=== PATIENT | male | born 1970 | race Caucasian/White ===

== ENCOUNTER → 2017-10-05 11:55 | Outpatient (CLI) | payer BC, SELFPAY ==
--- NOTE | 2017-10-05 12:04 | DI.REPORT_ITS ---
SYMPTOM/DIAGNOSIS: RT HAND PAIN, M79.641 RIGHT HAND: Mildly marginated bony densities seen adjacent to the radial styloid which could be related to an old injury. The bones appear normally mineralized. There are minimal degenerative changes of the interphalangeal joints of the fingers. IMPRESSION: Minimal degenerative changes.
== END ==
PROVIDERS: Visit Provider Nurse Practitioner
DX: M79.641 Pain in right hand (principal); M19.041 Primary osteoarthritis, right hand
CPT/HCPCS: 73130

== ENCOUNTER 2019-04-03 08:35 | Outpatient (REF) | payer BC, SELFPAY ==
[2019-04-03 14:11] LABS: ALT 43 U/L (16-63); AST 19 U/L (15-37); Anion Gap 8.6 mmol/L (3-11); BUN 15 mg/dL (7-18); CO2 28.4 mmol/L (21.0-32.0); CREATININE 1.33 mg/dL (0.70-1.30); Calcium 9.7 mg/dL (8.5-10.1); Calculated LDL 78 mg/dL (<100); Chloride 106 mmol/L (98-107); Cholesterol 148 mg/dL (<200); Estimated GFR 57.63 (mL/min/1.73m2); Glucose 96 mg/dL (74-106); HDL Cholesterol 61 mg/dL (40-60); Potassium 5.5 mmol/L (3.5-5.1); Sodium 143 mmol/L (136-145); Triglyceride 47 mg/dL (<150)
== END 2019-04-03 08:55 ==
LOC: NCHCN 08:35
PROVIDERS: PCP Internal Medicine; Visit Provider Nurse Practitioner Family
DX: Z00.00 Encounter for general adult medical examination without abnormal findings (principal); Z13.220 Encounter for screening for lipoid disorders; Z13.228 Encounter for screening for other metabolic disorders
CPT/HCPCS: 80048; 80061; 84450; 84460

== ENCOUNTER 2019-04-23 10:00 | Outpatient (CLI) | payer BC, SELFPAY ==
--- NOTE | 2019-04-23 09:30 | DI.RAD_ITS ---
EXAM: XR KNEE RT 3V AP,LAT,CHRISTOFER CLINICAL HISTORY: Pain. TECHNIQUE: 2D digital imaging was performed. COMPARISON: No exams were available for comparison FINDINGS: BONES: No acute fracture is present. No bony destructive lesion is seen. JOINTS: The knee is normally aligned. No joint effusion is seen. SOFT TISSUE: Normal. IMPRESSION: Unremarkable radiographs of the right knee.
== END 2019-04-23 10:20 ==
PROVIDERS: PCP Internal Medicine; Visit Provider Student in an Organized Health Care Education/Training Program
DX: M25.561 Pain in right knee (principal)
CPT/HCPCS: 73562

== ENCOUNTER 2019-05-09 01:46 | Outpatient (CLI) | payer BC, SELFPAY ==
--- NOTE | 2019-05-09 08:20 | DI.MRI_ITS ---
EXAM: MR LOWER JOINT RT WO CLINICAL HISTORY: right knee pain; possible patella chondromalacia, internal derangement,STRAIN RT G ASTROCNEMIUS MUSCLE, M23.91,M22.41,M25.561,S86.111A TECHNIQUE: Multiplanar multisequence MRI was performed. COMPARISON: XR KNEE RT 3V AP,LAT,CHRISTOFER from 04/23/2019 FINDINGS: The anterior and posterior cruciate ligaments are intact as are the medial and lateral collateral lig aments. The extensor mechanism and medial lateral retinaculum are unremarkable. Articular cartilage is well maintained. The marrow signal shows no evidence of an occult fracture or avascular necrosis. There is hyperintense signal seen within the body of the medial meniscus suspicious for a tear. The l ateral meniscus is intact. There is a small amount of fluid in the joint space. No popliteal cyst is seen. The soft tissues are unremarkable. IMPRESSION: 1. Findings suspicious for a tear of the body of the medial meniscus. 2. Unremarkable appearance of the articular cartilage. 3. No evidence of a ligament tear. DATA REPOSITORY:
== END 2019-05-09 02:06 ==
PROVIDERS: PCP Internal Medicine; Visit Provider Physician Assistant
DX: M25.561 Pain in right knee (principal); M22.41 Chondromalacia patellae, right knee; M23.331 Other meniscus derangements, other medial meniscus, right knee; M25.461 Effusion, right knee
CPT/HCPCS: 73721

== ENCOUNTER 2019-07-08 10:18 | Outpatient (REF) | payer BC, SELFPAY ==
[2019-07-08 21:05] LABS: BUN 17 mg/dL (7-18); Calcium 9.9 mg/dL (8.5-10.1); Chloride 104 mmol/L (98-107); Estimated GFR 59.17 (mL/min/1.73m2); Glucose 84 mg/dL (74-106); Sodium 141 mmol/L (136-145)
== END 2019-07-08 10:38 ==
LOC: NCHCN 10:18
PROVIDERS: PCP Internal Medicine; Visit Provider Nurse Practitioner Family
DX: Z00.00 Encounter for general adult medical examination without abnormal findings (principal); Z13.220 Encounter for screening for lipoid disorders
CPT/HCPCS: 80048

== ENCOUNTER 2019-08-27 15:58 | Outpatient (REF) | payer BC, SELFPAY ==
[2019-08-27 20:45] LABS: ALT 21 U/L (16-63); AST 17 U/L (15-37); Albumin 4.4 g/dL (3.4-5.0); Alkaline Phosphatase 46 U/L (46-116); Anion Gap 10.9 mmol/L (3-11); BUN 19 mg/dL (7-18); Bilirubin, Total 1.1 mg/dL (0.2-1.0); CO2 28.1 mmol/L (21.0-32.0); CREATININE 1.34 mg/dL (0.70-1.30); Calcium 9.8 mg/dL (8.5-10.1); Chloride 105 mmol/L (98-107); Estimated GFR 57.14 (mL/min/1.73m2); Glucose 85 mg/dL (74-106); Potassium 4.6 mmol/L (3.5-5.1); Sodium 144 mmol/L (136-145)
[2019-08-29 10:07] LABS: Prealbumin 21 mg/dL (20-40)
== END 2019-08-27 16:18 ==
LOC: NCHCN 15:58
PROVIDERS: PCP Internal Medicine; Visit Provider Nurse Practitioner Family
DX: Z01.818 Encounter for other preprocedural examination (principal); M25.561 Pain in right knee
CPT/HCPCS: 80053; 84134

== ENCOUNTER 2019-09-02 09:13 | Outpatient (CLI) | payer BC, SELFPAY ==
[2019-09-03 00:50] LABS: COVID-19 RT-PCR UVMMC Result Negative (Negative)
== END 2019-09-02 09:33 ==
PROVIDERS: PCP Internal Medicine; Visit Provider Student in an Organized Health Care Education/Training Program
DX: Z01.818 Encounter for other preprocedural examination (principal); Z11.59 Encounter for screening for other viral diseases
CPT/HCPCS: U0003

== ENCOUNTER 2019-09-05 07:41 | Day surgery (SDC) | payer BC, SELFPAY ==
[2019-09-05] VITALS (7 sets, daily range): BP systolic 96–131; BP diastolic 48–71; PULSE 32–44; RESP 11–16; TEMP 36.4–36.6; O2SAT 95–100
[2019-09-05] MEDS: Lactated Ringers 1,000 ML 100 ML IV (08:13)
--- NOTE | 2019-09-05 09:26 | PDOC.DSDIS_ITS ---
Discharge Plan Disposition Patient Disposition: HOME Condition: Stable Discharge Details Reason For Visit: Right knee arthroscopic surgery Attending Provider: Lowell Mccormick Primary Care Provider: Angel Hopkins Home Meds and New Rx's Prescriptions: New tramadol 50 mg Tablet 50 mg PO Q8H PRN PRN (Reason: severe pain) Qty: 9 RF: 0 aspirin 81 mg tablet,delayed release (DR/EC) 81 mg PO BID 30 Days Qty: 60 RF: 0 Continued albuterol sulfate 8.5 GM HFA aerosol inhaler 2 inh inhalation PRN PRNRF: 0 Discontinued ibuprofen 200 MG capsule 800 mg PO PRN PRN (Reason: Pain) RF: 0 ketorolac 10 MG tablet 20 mg PO PRN PRN (Reason: Headache) RF: 0 Discharge Instructions Additional Instructions: Surgery: Right knee arthroscopy with partial lateral meniscectomy, chondroplasty, synovectomy, and medial femoral condyle microfracture Activity: Protected weightbearing with crutches for 6 weeks. Perform daily knee range of motion exercises. A physical therapy prescription will be provided separately today. Prescriptions: Aspirin 81 mg take 1 twice daily (with breakfast and dinner) to prevent a blood clot for 30 days Tramadol 50 mg take 1 every 8 hours as needed for severe pain You may use kere-fkl-[id number] Tylenol (acetaminophen) as needed for mild pain. These pain medications may be taken all at once or in different combinations as needed. Also, recommend Colace (docusate) as a stool softener as surgery and pain medicine cause constipation. May use suxk-vhk-alqptxr NSAIDs (Motrin, Aleve, Advil, or ibuprofen) as needed for swelling to moderate pain if careful to avoid use while dehydrated. Recommend taking with a full glass of water or a meal. Dressings: Leave dressing in place for 3 days. May then remove and leave open to air or cover incisions with Band-Aids. May shower after 5 days. Follow-up: 10-[address] Mccormick Please call the office during business hours with any questions or concerns. Let us know right away if you develop any redness, drainage, fevers, chest pain, or trouble breathing. Do not drink alcohol or drive for at least 24 hours after anesthesia. Referrals: Lowell Mccormick MD [ [facility] STAFF PHYSICIAN] - Discharge Orders Discharge Orders: Discharge Order (Routine); Ordered 09/05/19 Ordered By: Lowell Mccormick DS: Diagnosis Discharge Diagnosis (1) Lateral meniscus tear: Status: Acute (2) Tear of cartilage of right knee: Status: Acute (3) Chondromalacia patellae of right knee: Status: Acute
[2019-09-05] MEDS: ceFAZolin 2 GM/50 ML BAG IVPB (09:36)
[2019-09-05] MEDS: EPINEPHrine 30 MG/30 ML VIAL (10:15)
[2019-09-05] MEDS: Ketorolac 30 MG/ML VIAL IVP (11:55)
[2019-09-05] MEDS: oxyCODONE 5 MG TAB PO (12:31)
--- NOTE | 2019-09-05 12:43 | ROE_ITS ---
Date of service: 09/05/19 Time of Service: 12:44 Operative Note Operative Note DATE OF PROCEDURE: 09/05/19 PRE-OP DIAGNOSIS: Right: 1. Lateral meniscus tear 2. Medial meniscus tear 3. Chondromalacia patella POST-OP DIAGNOSIS: other Right: 1. Lateral meniscus tear 2. Medial femoral condyle cartilage lesion 3. Chondromalacia patella PROCEDURE: Right: 1. Arthroscopic partial lateral meniscectomy, CPT # 47484 2. Chondroplasty trochlea, CPT # 78706 3. Microfracture medial femoral condyle, CPT # 69957 SURGEON: Lowell Mccormick POLE CLIMBER: Manan Holt ANESTHESIA: local and spinal ESTIMATED BLOOD LOSS: 5 PATHOLOGY: none sent TOURNIQUET TIME: 0 COMPLICATIONS: None Patient was transported to: PACU Patient's condition: stable Indications: Please see complete medical record for details. Findings: Complex, degenerative type horizontal flap tear posterior horn lateral meniscus; chondromalacia grade 3 fissuring isolated small location lateral tibial plateau and central trochlea, chondromalacia grade 2 fibrillations broadly undersurface patella; full-thickness cartilage lesion medial and posterior aspect medial femoral condyle measuring approximately 6 x 20 mm. Intact medial meniscus. Intact PCL and ACL. Procedure Description: In the operating room, spinal anesthesia was induced. The patient was positioned supine on the operating room table. All bony prominences were well-padded. Preoperative antibiotics were administered. The right knee was prepped and draped in the usual sterile fashion. The correct patient, procedure, and side of the procedure were all verified prior to in cision. The anterior lateral and anterior medial portal sites were pre-injected each with 5 cc 0.25% bupivacaine containing epinephrine and also used to confirm appropriate trajectory into the intercondylar notch. Horizontal skin incision was made for the anterior lateral portal and a straight stent was used to confirm an open the portal site into the intercondylar notch. The atraumatic arthroscope was inserted into the knee, and the knee was brought into full extension and the camera directed into the suprapatellar pouch. Complete diagnostic arthroscopy was performed of the patella, trochlea medial and lateral gutters, medial compartment, intercondylar notch, lateral compartment, and lateral and medial femoral condyles. There was an abundant synovitis and cartilage fraying as well as engaging synovitis throughout the patellofemoral compartment and medial lateral gutters as well as intercondylar area. Other findings noted above the lateral meniscus tear, trochlear and lateral tibial plateau cartilage lesions, undersurface patella cartilage fraying and significant full-thickness medial femoral condyle cartilage lesion. With the knee extension spinal needle was used to localize appropriate trajectory for the anteromedial portal. Horizontal skin incision was made followed by straight snap to open the portal toward the intercondylar notch. A probe was inserted and brought into the medial compartment. The medial meniscus was inspected and found to be intact. Medial tibial plateau cartilage was intact. With the knee in full extension, far posteriorly and medially there was what appeared to be a full-thickness discrete cartilage lesion. With increasing knee flexion to 90 degrees the lesion was brought forward and into view. It was provisionally measured with the probe and somewhat oval in shape with unstable small cartilage flaps centrally and medially. The underlying bone was smooth not a regular and without significant calcified cartilage or debris. With the knee already 90 degrees of flexion, attention was then turned to the intercondylar notch. Significant synovitis about a small ligamentum mucosum was released with mechanical shaver. The ACL and PCL were intact. The probe and arthroscope were then brought into the lateral compartment in a [id number]-yb-blyg position. The lateral meniscus tear was apparent. Appeared to be a radial flap tear that began at the lateral meniscal body and proceeded in a horizontal degenerative type fashion toward the lateral meniscus root. Probe was able to flip up the undersurface flap from behind lateral tibial plateau into the compartment. There was fraying of the lower flap as well as the upper flap inconsistent with any possible repair. Mechanical shaver was used to clean the meniscal body and posterior horn upper body segment of fraying. Meniscal biter was used to morselized the inferior flap followed by a mechanical shaver to remove the debris and smooth in contour the body upper and lower flap margins. Lateral meniscal root was probed and found to be stable and intact through likely posterior meniscal femoral ligament and to a lesser extent the anterior meniscal femoral ligament that seem to be involved mostly with the inferior flap segment that was removed. The lateral tibial cartilage was probed found to be stable. The knee was brought out of iplwjq-gr-ttwa position attention was turned in extension back to the patellofemoral compartment. The undersurface of the patella was gently shaved from a distance removing significant fraying throughout. The trochlear lesion was probed found to have a very small maybe 2 mm flap that was partially unstable and mechanical shaver was used to smooth that down. Plica attachment above the medial gutter as well synovitis medially and laterally was removed mechanical shaver. The knee was brought into 90 degrees of flexion and intercondylar notch area anterior to the lateral femoral condyle medial femoral condyle was cleared for visualization of excessive synovitis. Lateral femoral condyle was inspected and cartilage is largely intact. Medial femoral condyle was inspected and the previously mentioned cartilage lesion was more clearly identified. Probe confirmed to edges of unstable cartilage and a mechanical shaver was used to debride this back as little as possible enough to establish stable cartilage rim. The bed of the lesion was probed and confirmed to be full-thickness bone without any calcified scars or or other tissue to remove. Based on the lesion size approximately 100 mm? the decision was made to perform a microfracture. The curved microfracture awl was brought through the anteromedial portal the knee was positioned appropriate for flexion to optimize the trajectory toward the lesion. Starting around the periphery of the lesion and then centrally taking care to space the individual subchondral bone penetrations approximately 3 to 4 mm apart. The microfracture awl pick was advanced by gentle mallet flows taking care to advance only as far necessary to achieve subchondral perforation. Depth was confirmed by appropriate release of droplets. The inflow was turned off to view for 1 from the individual holes. Number of the holes did not bleed vigorously so the PIC was brought back in and those holes were deepened a few millimeters. Upon pressure inflow was again turned off and there is adequate bleeding from the microfracture cartilage lesion bed. The knee was brought into full extension the arthroscope directed into the suprapatellar pouch the knee copiously irrigated and flushed with the arthroscopic pump. An 18-gauge needle was inserted superior anterior laterally in the suprapatellar pouch for postoperative pain injection. The knee was drained of arthroscopic fluid. The anterior medial anterior lateral portals were closed using 3-0 Monocryl in a buried interrupted fashion. 25 cc of 0.25% bupivacaine containing epinephrine and 4 mg of morphine was injected into the knee and the needle removed. Mastisol was applied about the incisions followed by Steri-Strips, Xeroform, dry 4 x 4 gauze, and sterile soft roll. The foot up to the thigh was gently wrapped in Burt wraps. the patient awoke from anesthesia without complication and was transferred to the recovery room in a stable condition.
== END 2019-09-05 13:53 | disposition home or self-care (01) ==
PROVIDERS: PCP Internal Medicine; Visit Provider Student in an Organized Health Care Education/Training Program
PROC: (CPT 29870; principal; 2019-09-05 08:30)
DX: S83.271A Complex tear of lateral meniscus, current injury, right knee, initial encounter (principal); M94.261 Chondromalacia, right knee; M22.41 Chondromalacia patellae, right knee; M94.8X8 Other specified disorders of cartilage, other site; X58.XXXA Exposure to other specified factors, initial encounter
CPT/HCPCS: 29879; 29881; E0114; J0690; J1100; J1885

== ENCOUNTER 2020-09-04 09:44 | Outpatient (REF) | payer BC, SELFPAY ==
[2020-09-04 14:48] LABS: Anion Gap 8.1 mmol/L (3-11); BUN 22 mg/dL (7-18); CO2 28.9 mmol/L (21.0-32.0); CREATININE 1.2 mg/dL (0.70-1.30); Calcium 9.2 mg/dL (8.5-10.1); Chloride 106 mmol/L (98-107); Glucose 80 mg/dL (74-106); Potassium 4.3 mmol/L (3.5-5.1); Sodium 143 mmol/L (136-145)
== END 2020-09-04 09:45 | disposition home or self-care (01) ==
LOC: NCHCN 09:44
PROVIDERS: PCP Internal Medicine; Visit Provider Nurse Practitioner Family
DX: R79.89 Other specified abnormal findings of blood chemistry (principal)
CPT/HCPCS: 80048

== ENCOUNTER 2021-02-24 10:12 | Outpatient (CLI) | payer BC, SELFPAY ==
--- NOTE | 2021-02-24 10:15 | DI.RAD_ITS ---
Exam(s) XR WRIST LT COMPLETE EXAM: XR WRIST LT COMPLETE CLINICAL HISTORY: PAIN LT WRIST M25.532, PAIN AND SWELLING ON DORSAL ASPECT MID LT WRIST. TECHNIQUE: 2D digital imaging was performed of the left wrist. Three images were obtained. PA, obl ique and lateral views were obtained. COMPARISON: No exams were available for comparison FINDINGS: BONES: No acute fracture is present. No bony destructive lesion is seen. JOINTS: The carpal bones are normally aligned. SOFT TISSUE: Normal. IMPRESSION: Unremarkable radiographs of the left wrist. DATA REPOSITORY: RADIATION DOSE DELIVERED:
== END 2021-02-24 10:32 ==
PROVIDERS: PCP Internal Medicine; Visit Provider Physician Assistant Medical
DX: M25.532 Pain in left wrist (principal)
CPT/HCPCS: 73110

== ENCOUNTER 2021-09-07 17:21 | Outpatient (REF) | payer BC, SELFPAY ==
[2021-09-07 19:34] LABS: HCT 42.1 % (40.0-50.0); HGB 14.7 g/dL (13.5-17.5); MCHC 34.9 % (32.0-36.0); MCV 92 fL (80-95); Platelet Count 152 10^3/uL (130-400); RDW 12.7 % (11.8-14.1); RDW-SD 41.4 fL; WBC 5.31 10^3/uL (4.4-10.8)
[2021-09-07 19:43] LABS: ALT 22 U/L (16-63); AST 21 U/L (15-37); Albumin 4.2 g/dL (3.4-5.0); Alkaline Phosphatase 57 U/L (46-116); Anion Gap 6.6 mmol/L (3-11); BUN 20 mg/dL (7-18); Bilirubin, Total 0.8 mg/dL (0.2-1.0); CO2 29.4 mmol/L (21.0-32.0); CREATININE 1.2 mg/dL (0.70-1.30); Calcium 9.4 mg/dL (8.5-10.1); Chloride 103 mmol/L (98-107); Glucose 92 mg/dL (74-106); Potassium 3.9 mmol/L (3.5-5.1); Sodium 139 mmol/L (136-145); Total Protein 7.2 g/dL (6.4-8.2)
== END 2021-09-07 17:22 | disposition home or self-care (01) ==
LOC: NCHCN 17:21
PROVIDERS: PCP Internal Medicine; Visit Provider Nurse Practitioner Family
DX: Z00.00 Encounter for general adult medical examination without abnormal findings (principal); R94.4 Abnormal results of kidney function studies
CPT/HCPCS: 80053; 85027

== ENCOUNTER → 2021-10-07 01:57 | Outpatient (CLI) | payer BC, SELFPAY ==
--- NOTE | 2021-10-07 15:55 | DI.US_ITS ---
APPROVED REPORT EXAM: Comprehensive 2D, Doppler, and color-flow Echocardiogram Patient Location: Out-Patient Process Safety Engineering Technologist: Kym Adorno RDCS (AE) Indications: Murmur Other Information Study Quality: Adequate Conclusion Normal left ventricular chamber size and wall thickness. Estimated ejection fraction is 60 to 65%. Wall motion is normal Normal right ventricular size and systolic function Both atria are normal in size There is no structural or hemodynamically significant valvular disease Wall motion Left Ventricle The left ventricle is normal size. The left ventricular systolic function is normal. The left ventric ular ejection fraction is within the normal range. There is normal left ventricular wall thickness. T here is normal LV segmental wall motion. There is no ventricular septal defect visualized. LVEF is 60 -65%. Right Ventricle The right ventricle is normal size. The right ventricular systolic function is normal. The RVSP is 21 .0mmHg. Atria The left atrium size is normal. The right atrium size is normal. The interatrial septum is intact wit h no evidence for an atrial septal defect. Aortic Valve The aortic valve is normal in structure. Aortic valve is trileaflet. There is no aortic valvular sten osis. No aortic regurgitation is present. Mitral Valve The mitral valve is normal in structure. No evidence of mitral valve stenosis. Trace mitral regurgita tion. Tricuspid Valve The tricuspid valve is normal in structure. There is no tricuspid valve stenosis. Trace tricuspid reg urgitation. Pulmonic Valve The pulmonary valve is normal in structure. There is no pulmonic valvular stenosis. Trace pulmonic re gurgitation. Great Vessels The aortic root is normal in size. The ascending aorta is normal in size. IVC is normal in size and c ollapses >50% with inspiration. Pericardium There is no pericardial effusion. 2D Dimensions IVSD d PLAX 0.96 cm M: 0.6-1.2 LV Vol A2C d MOD 142.3 mL LVPW d PLAX 0.97 cm M: 0.6 - 1.2 LV Vol A4C d MOD 168.8 mL LVID d PLAX 5.60 cm M: 4.2 - 5.8 LA vol/ BSA A2C s A-L 32.3 mL/m2 LVDs 3.40 cm M: 2.5 - 4.0 LA vol/ BSA A4C s A-L 34.2 mL/m2 Ao Root d 3.56 cm M: 3.1 - 3.7 LA Vol/ BSA Biplane s A-L 34.2 mL/m2 RA Area A4C 16.93 cm2 LA Area A4C s MOD 22.60 cm2 RA Vol/ BSA A4C s A-L 18.2 mL/m2 LA Area A2C s MOD 22.61 cm2 Ao Asc Diam d 3.25 cm M: 2.6 - 3.4 LV EF A4C MOD 60.8 % LV EF Teichholz 68.9 % LV EF A2C MOD 65.1 % LVEF (Mireles's) 63.92 % M: 52 - 72 LV EF Biplane MOD 63.9 % LV Volume 115.51 mL M: 62 - 150 SV 101.80 mL LV Volume Index 52.03 mL/m2 M: 34 - 74 SV Index 45.88 mL/m2 LV Vol Biplane MOD 159.2 mL FS 39.10 % M-Mode TAPSE 3.42 cm (M/F) >1.7 LV Diastology MV E' medial 0.095 (>0.07 m/s) E/A Ratio 1.3 LV E/e MED 9.95 (<14) MV E Vmax 0.94 (0.4-1.3 m/s) MV E' lateral 0.155 (>0.1 m/s) MV A Vmax 0.70 (0.4-1.3 m/s) LV E/e LAT 6.05 (<14) MV E/A Ratio 1.33 MV E/E' medial 9.96 MV E/E' lateral 6.08 Aortic Valve LVOT Area 4.13 cm2 AoV Area Vmax 3.15 cm2 LVOT Vmax 1.36 m/s AoV Area/ BSA (Vmax) 1.42 cm2/m2 LVOT Mean Kang. 0.85 m/s PEREZ Mean Kang. 2.83 cm2 LVOT Peak Grad 7.4 mmHg PEREZ Mean Kang. Index 1.27 cm2/m2 LVOT Mean Grad 3.5 mmHg LVOT VTI 0.298 m LVOT Diam s 2.25 cm AoV Vmax 1.79 m/s Velocity Ratio 0.75 AoV Mean Kang. 1.24 m/s AoV Peak Grad 12.8 mmHg LVOT SV 123.19 mL AoV Mean Grad 6.9 mmHg AoV VTI 0.371 m AoV Area VTI 3.32 cm2 AoV Area/ BSA (VTI) 1.50 cm/m2 Mitral Valve MV DT 172 (160-240 msec) MV PHT 50 msec MV Area PHT 4.41 cm2 MV VTI 0.371 m MV Area VTI 3.32 (4.0-6.0 cm2) Pulmonary Valve PV Vmax 1.15 (0.5-1.5 m/s) RVOT Peak Gr. 2.04 mmHg PV Peak Grad 5.3 mmHg RVOT Mean Gr. 1.10 mmHg PV Mean Grad 2.9 mmHg RVOT VTI 0.174 m PV VTI 0.253 m RVOT Vmax 0.71 m/s Tricuspid Valve TR Peak Grad 18.0 mmHg TR Vmax 2.12 m/s RA Pressure 3.00 mmHg RVSP (TR) 21.0 mmHg
== END ==
PROVIDERS: PCP Internal Medicine; Visit Provider Nurse Practitioner Family
DX: R01.1 Cardiac murmur, unspecified (principal)
CPT/HCPCS: 93306

== ENCOUNTER 2022-02-24 07:31 | Day surgery (SDC) | payer BC, SELFPAY ==
--- NOTE | 2022-02-23 16:19 | W.PM.DSUDISC ---
Date of service: 02/24/22 Time of Service: 09:37 Discharge Plan Disposition Patient Disposition: Home Discharge Details Reason For Visit: Screening colonoscopy Attending Provider: Nazario Taylor Primary Care Provider: Angel Hopkins Home Meds and New Rx's Prescriptions: Continued albuterol sulfate 8.5 GM HFA aerosol inhaler 2 inh inhalation PRN PRN Discontinued polyethylene glycol 3350 17 gram/dose powder 238 g PO ONCE Qty: 238 0RF Rx Instructions: take per colonoscopy instructions bisacodyl [Dulcolax (bisacodyl)] 5 mg tablet,delayed release (DR/EC) 5 mg PO ONCE Qty: 4 0RF Rx Instructions: take per colonoscopy instructions Discharge Instructions Additional Instructions: 1. If tolerated, consume a soft, low fiber diet for 1-2 days. 2[address] Do not drive, drink alcohol, operate machinery, make critical decisions, or do activities that require coordination or balance for 24 hours. 3. Because air was put into your colon during the procedure, expelling air from your rectum (passing gas or farting) is normal. 4. You may not have a bowel movement for 1-3 days because of the colonoscopy prep. This is normal. 5. Go directly to the emergency room if you notice any of the following: Develop chills (warm to touch), or if you have a thermometer and your temperature is above 101 Difficulty breathing or difficultly swallowing Persistent vomiting Severe abdominal pain, other than gas cramps Severe chest pain Black, tarry stools Any bleeding ? exceeding one tablespoon 6. Call your physician if the site where your intravenous was started becomes red, swollen, painful, and warm to touch. 7. Your physician has reviewed your pre-procedure medications. Please continue to take those medications as previously ordered. You will be given specific information/education regarding any changes to your medications before leaving. Activity:: Activity as Tolerated Diet:: As Tolerated Discharge Orders Discharge Orders: Discharge Order (Routine); Ordered 02/23/22 Ordered By: Nazario Taylor DS: Diagnosis Discharge Diagnosis (1) Screening for colon cancer: Status: Acute Asessment and Plan: Your colonoscopy was normal. You should have another screening colonoscopy in 10 years
--- NOTE | 2022-02-23 16:20 | W.COLOREPORT ---
Date of service: 02/24/22 Time of Service: 09:38 Colonoscopy Report Date of procedure: 02/24/22 Pre-op diagnosis general: Routine health maintenance screening colonoscopy Post-op diagnosis procedure note: same Procedure: Screening colonoscopy Surgeon: Nazario Taylor Anesthesia Type: General:No Airway Estimated blood loss (mL): 0 Pathology: none sent Complications: None Disposition: same day Indications: Joshua is a 52-year-old male here for his first screening colonoscopy Prep: Miralax/Dulcolax Procedure Start Time: 09:15 Procedure End Time: 09:27 Retraction Time: 9 Findings: Normal colonoscopy Procedure Description: After the induction of monitored anesthetic care, and with the patient in left lateral decubitus position, I began by performing an external anorectal exam.? Perineum and skin were normal, as was the anal verge.? There was no evidence of external hemorrhoids.? Next, I performed a digital rectal exam.? I did not appreciate any abnormal findings.? Next, I advanced a colonoscope into the rectal vault.? I performed retroflexion.? This was normal.? Using insufflation, I then advanced the colonoscope beyond the rectal folds and into the sigmoid colon before advancing towards the cecum.? The quality of the prep was excellent.? The scope was noted to be in the cecum by identification of the ileocecal valve and appendiceal orifice.? I then began withdrawing the colonoscope using repeated irrigation as necessary for full evaluation of the colonic mucosa. ?Once the scope was withdrawn to the level of the rectum, great care was taken to examine portions of the rectal folds.? I did not see any evidence of polyps, or other abnormalities. Finally, the scope was withdrawn and the patient was brought to the same-day surgery recovery unit as the anesthetic wore off. ?The findings and instructions were shared with the patient prior to discharge.
--- NOTE | 2022-02-24 06:34 | ANES.PREOP_ITS ---
General Info Date of Service Date Performed: 02/24/22 Height: 6 ft 2 in Weight: 92.8 kg Body Mass Index (BMI): 26.2 Surgical Procedure: Operation Date: 02/24/22 09:05 Proposed Procedure Side Surgeon madonna Taylor MD Meds Allergies and Home Medications Allergies Allergy/AdvReac Type Severity Reaction Status Date / Time darrell Allergy Severe Verified 02/24/22 07:47 kiwi Allergy Severe Uncoded 02/24/22 07:47 tomatoes Allergy Severe Uncoded 02/24/22 07:47 Home Medication Medication Instructions Recorded albuterol sulfate 90 mcg/actuation 2 inh inhalation PRN PRN 09/25/14 aerosol inhaler Current Visit Medications: Current Medications Generic Name Dose Route Start Last Admin Trade Name Freq PRN Reason Stop Dose Admin Hyoscyamine Sulfate 0.125 mg 02/23/22 16:21 Hyoscyamine 0.125 Mg Sl/Oral/Chew SL DIRECTED PRN Ringer's Solution 1,000 mls @ 80 mls/hr 02/24/22 06:00 IV 03/25/22 23:59 INFUSION TOD IV Miscellaneous Supplies 1 each 02/24/22 06:00 Iv Access IV 03/25/22 23:59 DIRECTED TOD Ondansetron HCl 4 mg 02/23/22 16:21 Ondansetron 4 Mg/2 Ml Vial IVP Q4H PRN PRN Nausea / Vomiting Sodium Chloride 0 ml 02/24/22 06:00 Normal Saline Flush 10 Ml Syr IV 03/25/22 23:59 PRN PRN Sodium Chloride 0 ml 02/24/22 06:00 Normal Saline 10 Ml Vial IJ 03/25/22 23:59 DIRECTED PRN Sterile Water 0 ml 02/24/22 06:00 Water,Injection,Sterile 10 Ml Vial IJ 03/25/22 23:59 DIRECTED PRN PFSH Active Problems Active Problems: Problem Status Onset Code Internal derangement of right knee ~02/06/19 M23.91 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 states he had a hx of sleep apnea, but due to 105lbs weight loss since January 2019 Pain Trigger finger Surgical History Surgical History History of knee surgery microfracture History of shoulder surgery History of trigger finger Status post partial glossectomy x5 Tobacco Smoking/Tobacco Use Status: Former Tobacco Use Alcohol Alcohol Intake: never Substance Use Substance use: Rarely Substance use type: does not use Details: Stopped drinking alcohol 8 months ago Vital Signs and Lab Results Vital Signs Comment Vital Signs Comment:: Temp Pulse Resp BP Pulse Ox 36.5 C 43 L 16 123/75 99 02/24/22 07:49 02/24/22 07:49 02/24/22 07:49 02/24/22 07:49 02/24/22 07:49 Lab Results Blood Type / Crossmatch: No Data to Display Complete Blood Count: No Data to Display Complete Metabolic Panel: No Data to Display Liver Function Panel: No Data to Display Coagulation Panel: No Data to Display Cardiac Panel: No Data to Display Arterial Blood Gas: No Data to Display Venous Blood Gas: No Data to Display Pancreas Panel: No Data to Display Thyroid Panel: No Data to Display Infectious Disease: No Data to Display Blood Cultures: No Data to Display Toxicology Panel: No Data to Display Imaging and Studies Imaging and Studies Study information below may be from another EMR and interpreted by another provider. Please see original notes in EMR for more complete details. Echocardiogram Summary: Patient Name: Darinel Scanlon #: [id number]: DI Ordering Provider: Christiano Danielle #: [id number]: REG CLI Primary Care Provider: Angel Hopkins M.D.Date of Exam: 10/07/21Sex: M Admission Date: 10/07/21 : 1970 Age: 51 APPROVED REPORT EXAM: Comprehensive 2D, Doppler, and color-flow Echocardiogram Patient Location: Out-Patient Network Analyst: Kym Adorno RDCS (AE) Indications: Murmur Other Information Study Quality: Adequate Conclusion Normal left ventricular chamber size and wall thickness. Estimated ejection fraction is 60 to 65%. Wall motion is normal Normal right ventricular size and systolic function Both atria are normal in size There is no structural or hemodynamically significant valvular disease Wall motion Left Ventricle The left ventricle is normal size. The left ventricular systolic function is normal. The left ventricular ejection fraction is within the normal range. There is normal left ventricular wall thickness. There is normal LV segmental wall motion. There is no ventricular septal defect visualized. LVEF is 60-65%. Right Ventricle The right ventricle is normal size. The right ventricular systolic function is normal. The RVSP is 21.0mmHg. Atria The left atrium size is normal. The right atrium size is normal. The interatrial septum is intact with no evidence for an atrial septal defect. Aortic Valve The aortic valve is normal in structure. Aortic valve is trileaflet. There is no aortic valvular stenosis. No aortic regurgitation is present. Mitral Valve The mitral valve is normal in structure. No evidence of mitral valve stenosis. Trace mitral regurgitation. Tricuspid Valve The tricuspid valve is normal in structure. There is no tricuspid valve stenosis. Trace tricuspid regurgitation. Pulmonic Valve The pulmonary valve is normal in structure. There is no pulmonic valvular stenosis. Trace pulmonic regurgitation. Great Vessels The aortic root is normal in size. The ascending aorta is normal in size. IVC is normal in size and collapses >50% with inspiration. Pericardium There is no pericardial effusion. Anesthesia Assessment and Plan Anesthesia History Personal History: No History of Anesthesia Complications Family History: No Family History of Anesthesia Complications Exercise Tolerance Exercise Tolerance: Metabolic Equivalents>4 Pertinent Negatives Pertinent Negatives: No Symptoms of GERD, No Major Cardiovascular Symptoms or Complaints, No Major Pulmonary Symptoms or Complaints and No History of CVA/TIA Cardiac & Pulmonary Exam Cardiac Exam: Normal S1/S2 Heart Sounds Pulmonary Exam: Clear Bilateral Breath Sounds Implantable Cardiac Device Does patient have a Pacemaker or an ICD?: No Airway Exam Known Difficult Airway: No Mallampati Class: 2 Mouth Opening: Normal (> 3cm) Thyromental Distance: Greater than 3 cm Neck Range of Motion: Full ROM Neck Circumference: Normal Teeth Condition: Normal Dentition ASA Classification ASA Score: ASA 2 Emergency Case?: No NPO Status NPO Status: NPO Clears >2 hours, Solids >8 hours Anesthesia Plan Resuscitation Status: Full Code Anesthesia Technique: General Anesthesia Airway Planned: Natural Airway Monitors Used: Standard Monitors
[2022-02-24 07:49] VITALS: BP 123/75; PULSE 43; RESP 16; TEMP 36.5; O2SAT 99
[2022-02-24] MEDS: Lactated Ringers 1,000 ML 80 ML IV (08:07)
[2022-02-24 08:33] VITALS: BMI 26.2
[2022-02-24 09:36] VITALS: BP 100/58; PULSE 41; RESP 16; TEMP 36.1; O2SAT 99
--- NOTE | 2022-02-24 09:55 | W.ANESPOSTOP ---
Postoperative Evaluation Date, Time and Location Date Performed: 02/24/22 Time Performed: 09:55 Patient Location: Day Surgery Unit Vital Signs Most Recent Imported Vital Signs: Most Recent Vital Signs Temp Pulse Resp BP Pulse Ox 36.1 C L 41 L 16 100/58 L 99 02/24/22 09:36 02/24/22 09:36 02/24/22 09:36 02/24/22 09:36 02/24/22 09:36 Pain Score Most Recent Pain Score: Most Recent Pain Score Pain Level 9 02/24/22 09:36 Assessment Mental Status: Awake (Alert & Oriented to Patient Baseline) Airway and Respiratory Function: Patent airway with normal (patient baseline) respiratory exam Cardiovascular Function: Hemodynamically Stable Hydration Status: Adequately Hydrated Nausea & Vomiting: No Nausea or Vomiting Pain: Pt. Denies Any Pain Peripheral Nerve Block: Patient did not receive a nerve block
[2022-02-24 10:05] VITALS: BP 117/87; PULSE 42; RESP 16; TEMP 36; O2SAT 97
== END 2022-02-24 10:12 | disposition home or self-care (01) ==
PROVIDERS: PCP Internal Medicine; Visit Provider Surgery
PROC: 0DJD8ZZ Inspection of Lower Intestinal Tract, Via Natural or Artificial Opening Endoscopic (ICD-10-PCS; CPT 45378; principal; 2022-02-24 09:00)
DX: Z12.11 Encounter for screening for malignant neoplasm of colon (principal)
CPT/HCPCS: 45378

== ENCOUNTER 2022-04-06 15:16 | Outpatient (REF) | payer BC, SELFPAY ==
[2022-04-06 23:10] LABS: PSA, Screening 0.5 ng/mL (<=3.5)
== END 2022-04-06 15:17 | disposition home or self-care (01) ==
LOC: NCHCN 15:16
PROVIDERS: PCP Internal Medicine; Visit Provider Family Medicine
DX: R36.1 Hematospermia (principal)
CPT/HCPCS: 84153; 87086

== ENCOUNTER 2022-09-15 15:36 | Outpatient (REF) | payer BC, SELFPAY ==
[2022-09-15 15:09] LABS: HCT 40.1 % (40.0-50.0); HGB 13.9 g/dL (13.5-17.5); MCH 32.3 pg (27.0-33.0); MCHC 34.7 % (32.0-36.0); MCV 93 fL (80-95); MPV 10.8 fL (8.0-11.0); Platelet Count 145 10^3/uL (130-400); RDW 13.2 % (11.8-14.1); RDW-SD 44.7 fL; WBC 3.86 10^3/uL (4.4-10.8)
[2022-09-15 15:17] LABS: ALT 24 U/L (16-63); AST 21 U/L (15-37); Albumin 4.1 g/dL (3.4-5.0); Alkaline Phosphatase 69 U/L (46-116); Anion Gap 6.3 mmol/L (3-11); BUN 16 mg/dL (7-18); Bilirubin, Total 1.1 mg/dL (0.2-1.0); CO2 30.7 mmol/L (21.0-32.0); CREATININE 1.2 mg/dL (0.70-1.30); Calcium 9.2 mg/dL (8.5-10.1); Calculated LDL 104 mg/dL (<100); Chloride 105 mmol/L (98-107); Cholesterol 192 mg/dL (<200); Estimated GFR 73.67 (mL/min/1.73m2); Glucose 88 mg/dL (74-106); HDL Cholesterol 82 mg/dL (40-60); Potassium 4.3 mmol/L (3.5-5.1); Sodium 142 mmol/L (136-145); Total Protein 6.7 g/dL (6.4-8.2); Triglyceride 30 mg/dL (<150)
== END 2022-09-15 15:37 | disposition home or self-care (01) ==
LOC: NCHCN 15:36
PROVIDERS: PCP Internal Medicine; Visit Provider Nurse Practitioner Family
DX: Z00.00 Encounter for general adult medical examination without abnormal findings (principal)
CPT/HCPCS: 80053; 80061; 85027

== ENCOUNTER 2023-04-05 13:25 | Outpatient (CLI) | payer BC, SELFPAY ==
[2023-04-05 17:57] LABS: PSA, Diagnostic 0.5 ng/mL (<=3.5)
== END 2023-04-05 13:26 | disposition home or self-care (01) ==
LOC: LBO 13:29
PROVIDERS: PCP Internal Medicine; Visit Provider Urology
DX: R36.1 Hematospermia (principal)
CPT/HCPCS: 36415; 84153

== ENCOUNTER 2023-09-19 18:24 | Outpatient (REF) | payer BC, SELFPAY ==
[2023-09-19 16:25] LABS: HCT 41.7 % (40.0-50.0); HGB 14.5 g/dL (13.5-17.5); MCHC 34.8 % (32.0-36.0); MCV 92 fL (80-95); MPV 10.7 fL (8.0-11.0); Platelet Count 145 10^3/uL (130-400); RBC 4.53 10^6/uL (4.36-5.78); RDW 12.6 % (11.8-14.1); RDW-SD 42.5 fL; WBC 4.46 10^3/uL (4.4-10.8)
[2023-09-19 17:14] LABS: ALT 26 U/L (16-63); AST 24 U/L (15-37); Albumin 4.3 g/dL (3.4-5.0); Alkaline Phosphatase 60 U/L (46-116); Anion Gap 10.7 mmol/L (3-11); BUN 19 mg/dL (7-18); Bilirubin, Total 1.32 mg/dL (0.2-1.0); CO2 28.3 mmol/L (21.0-32.0); CREATININE 1.1 mg/dL (0.70-1.30); Calcium 9.3 mg/dL (8.5-10.1); Calculated LDL 101 mg/dL (<100); Chloride 104 mmol/L (98-107); Cholesterol 198 mg/dL (<200); Estimated GFR 81.28 (mL/min/1.73m2); Glucose 83 mg/dL (74-106); HDL Cholesterol 91 mg/dL (40-60); Potassium 3.9 mmol/L (3.5-5.1); Sodium 143 mmol/L (136-145); Triglyceride 32 mg/dL (<150)
[2023-09-19 17:15] LABS: Hemoglobin A1C 5.1 % (<5.7)
== END 2023-09-19 18:25 | disposition home or self-care (01) ==
LOC: NCHCN 18:24
PROVIDERS: PCP Nurse Practitioner Family; Visit Provider Nurse Practitioner Family
DX: Z00.00 Encounter for general adult medical examination without abnormal findings (principal); E66.3 Overweight; Z13.220 Encounter for screening for lipoid disorders; Z13.228 Encounter for screening for other metabolic disorders; Z13.0 Encounter for screening for diseases of the blood and blood-forming organs and certain disorders involving the immune mechanism
CPT/HCPCS: 80053; 80061; 85027; 83036

== ENCOUNTER 2023-10-24 01:11 | Outpatient (CLI) | payer BC, SELFPAY ==
--- NOTE | 2023-10-24 10:45 | DI.RAD_ITS ---
Exam(s) XR THORACIC SPINE COMPLETE EXAM: XR THORACIC SPINE COMPLETE CLINICAL HISTORY: THORACIC BACK PAIN, M54.6. TECHNIQUE: 2D digital imaging was performed. Three views. COMPARISON: No exams were available for comparison FINDINGS: BONES: There is no fracture or destructive lesion. The vertebral bodies and posterior elements are un remarkable. ALIGNMENT: Within normal limits. DISKS: Mild are narrowing of the disc spaces anteriorly in the mid thoracic region. Small endplate o steophytes present throughout. SOFT TISSUE: Visualized lungs are clear. IMPRESSION: Mild degenerative changes of the thoracic spine. DATA REPOSITORY: RADIATION DOSE DELIVERED:
== END 2023-10-24 01:31 ==
LOC: DI 01:12
PROVIDERS: PCP Nurse Practitioner Family; Visit Provider Nurse Practitioner Family
DX: M51.34 Other intervertebral disc degeneration, thoracic region (principal)
CPT/HCPCS: 72072

== ENCOUNTER 2024-04-01 14:43 | Outpatient (CLI) | payer BC, SELFPAY ==
[2024-04-01 22:37] LABS: PSA, Diagnostic 0.6 ng/mL (<=3.5)
== END 2024-04-01 14:44 | disposition home or self-care (01) ==
LOC: LBO 14:44
PROVIDERS: PCP Nurse Practitioner Family; Visit Provider Urology
DX: R36.1 Hematospermia (principal); N40.1 Benign prostatic hyperplasia with lower urinary tract symptoms; N13.8 Other obstructive and reflux uropathy
CPT/HCPCS: 36415; 84153

== ENCOUNTER 2024-09-19 16:31 | Outpatient (REF) | payer BC, SELFPAY ==
[2024-09-19 20:52] LABS: HCT 40.3 % (40.0-50.0); HGB 13.6 g/dL (13.5-17.5); MCH 31.6 pg (27.0-33.0); MCHC 33.7 % (32.0-36.0); MCV 94 fL (80-95); MPV 11.1 fL (8.0-11.0); Platelet Count 151 10^3/uL (130-400); RBC 4.31 10^6/uL (4.36-5.78); RDW 12.8 % (11.8-14.1); RDW-SD 44.7 fL; WBC 5.95 10^3/uL (4.4-10.8)
[2024-09-19 21:06] LABS: ALT 30 U/L (16-63); AST 20 U/L (15-37); Albumin 4.3 g/dL (3.4-5.0); Alkaline Phosphatase 61 U/L (46-116); Anion Gap 8.1 mmol/L (3-11); BUN 19 mg/dL (7-18); Bilirubin, Total 1.2 mg/dL (0.2-1.0); CO2 28.9 mmol/L (21.0-32.0); Calcium 9.4 mg/dL (8.5-10.1); Calculated LDL 108 mg/dL (<100); Chloride 106 mmol/L (98-107); Cholesterol 206 mg/dL (<200); Estimated GFR 72.76 (mL/min/1.73m2); Glucose 80 mg/dL (74-106); HDL Cholesterol 91 mg/dL (>or=40); Potassium 4.1 mmol/L (3.5-5.1); Sodium 143 mmol/L (136-145); Total Protein 6.9 g/dL (6.4-8.2); Triglyceride 35 mg/dL (<150)
== END 2024-09-19 16:32 | disposition home or self-care (01) ==
LOC: NCHCN 16:31
PROVIDERS: PCP Nurse Practitioner Family; Visit Provider Nurse Practitioner Family
DX: Z00.00 Encounter for general adult medical examination without abnormal findings (principal)
CPT/HCPCS: 80053; 80061; 85027